=== PATIENT | male | born 2000 | race Caucasian/White ===

== ENCOUNTER 2020-10-08 19:07 | Emergency (ER) | payer SELFPAY ==
[2020-10-08 19:10] VITALS: BP 151/80; PULSE 82; RESP 16; TEMP 36.2; O2SAT 98
--- NOTE | 2020-10-08 20:50 | PC.NURSE ---
called for the pt to go to a room, no pt to be found.not in lobby or outside.
== END 2020-10-09 03:26 | disposition left against medical advice (07) ==
LOC: ANHED 21:51
PROVIDERS: PCP Family Medicine Adolescent Medicine
DX: Z53.21 Procedure and treatment not carried out due to patient leaving prior to being seen by health care provider (principal)
CPT/HCPCS: 99199

== ENCOUNTER 2020-11-08 14:12 | Outpatient (CLI) | payer OTHER, SELFPAY | END 2020-11-08 14:13 | disposition home or self-care (01) | LOC: ANHAUDIO 14:14 | PROVIDERS: PCP Family Medicine Adolescent Medicine; Visit Provider Otolaryngology | DX: R42 Dizziness and giddiness (principal); H93.11 Tinnitus, right ear; H90.71 Mixed conductive and sensorineural hearing loss, unilateral, right ear, with unrestricted hearing on the contralateral side | CPT/HCPCS: 92557; 92567 ==